=== PATIENT | male | born 1945 | race Caucasian/White ===

== ENCOUNTER 2017-06-19 04:24 | Emergency (ER) | payer MEDICARE, OTHER ==
[2017-06-19 05:06] LABS: Appearance,Urine Clear (Clear); Bilirubin,Urine Negative (Negative); Blood,Urine Negative (Negative); Color,Urine Light Yellow; Glucose,Urine (UA) Negative (Negative); Ketones,Urine Negative (Negative); Leukocyte Esterase,Urine Negative (Negative); Nitrite,Urine Negative (Negative); PH, Urine 6.5 (5.0-8.0); Protein,Urine Negative (Negative); Specific Gravity,Urine 1.008 (1.001-1.035); Urobilinogen,Urine <2.0 mg/dL (<2.0)
--- NOTE | 2017-06-19 05:26 | ED ---
Male Urogenital HPI - General Chief complaint: Urogenital Stated complaint: Male Time Seen by Provider: 06/19/17 04:43 Source: patient Mode of arrival: ambulatory Limitations: no limitations - History of Present Illness Initial comments: 72 years old male presents with urinary retention like symptoms he said he had a hard time voiding for the last 2 days he denies any history of prostate cancer or bladder tumor he said he has just a benign prostate hypertrophy complains about some mom frequency unable to void no fever no chills no nausea no vomiting no flank pain review of system is otherwise unremarkable - Related Data Allergies Allergy/AdvReac Type Severity Reaction Status Date / Time No Known Allergies Allergy Verified 06/19/17 04:31 Review of Systems ROS Statement: Those systems with pertinent positive or pertinent negative responses have been documented in the HPI. ROS Other: All systems not noted in ROS Statement are negative. Past Medical History Past Medical History: Diabetes Mellitus, Hypertension History of Any Multi-Drug Resistant Organisms: None Reported Past Surgical History: Back Surgery, Joint Replacement, Orthopedic Surgery, Tonsillectomy Additional Past Surgical History / Comment(s): sinus surgery 11/18/2014, Past Psychological History: No Psychological Hx Reported Smoking Status: Former smoker Past Alcohol Use History: None Reported Past Drug Use History: None Reported General Exam - General Exam Comments Initial Comments: General: The patient is awake and alert, in no distress, and does not appear acutely ill. Skin: Skin is warm and dry and no rashes or lesions are noted. Eye: Pupils are equal, round and reactive to light, extra-ocular movements are intact; there is normal conjunctiva bilaterally. Ears, nose, mouth and throat: There are moist mucous membranes and no oral lesions. Neck: The neck is supple, there is no tenderness or JVD. Cardiovascular: There is a regular rate and rhythm. No murmur, rub or gallop is appreciated. Respiratory: To auscultation bilateral, no wheezing no rhonchi no distress respiratory howell noticed Gastrointestinal: Soft, non-distended, non-tender abdomen without masses or organomegaly noted. There is no rebound or guarding present. Bowel sounds are unremarkable. Back: There is no tenderness to palpation in the midline. There is no obvious deformity. Musculoskeletal: Normal ROM, no tenderness, There is no pedal edema. There is no calf tenderness or swelling. No cords were appreciated. Neurological: CN II-XII intact, Cranial nerves III through XII are intact. There are no obvious motor or sensory deficits. Coordination appears grossly intact. Speech is normal. Psychiatric: Cooperative, appropriate mood & affect, normal judgment. Limitations: no limitations Course Vital Signs 06/19/17 04:26 Temperature 97.9 F Pulse Rate 84 Respiratory 20 Rate Blood Pressure 189/99 O2 Sat by Pulse 98 Oximetry Urinalysis was done it was unremarkable, bladder scan was done it started about 600 mL of urine Rivera was inserted, 400+ cc came out patient is inclined to keep the Rivera catheter he has his urologist at [facility] and he wants to follow up with him or provide him with a leg bag and he be discharged to see his family doctor and his urologist Medical Decision Making - Lab Data Lab Results 06/19/17 Range/Units 04:58 Urine Color Light Yellow Urine Appearance Clear (Clear) Urine pH 6.5 (5.0-8.0) Ur Specific [place] 1.008 (1.001-1.035) Urine Protein Negative (Negative) Urine Glucose (UA) Negative (Negative) Urine Ketones Negative (Negative) Urine Blood Negative (Negative) Urine Nitrite Negative (Negative) Urine Bilirubin Negative (Negative) Urine Urobilinogen <2.0 (<2.0) mg/dL Ur Leukocyte Esterase Negative (Negative) Disposition Clinical Impression: Urinary retention Disposition: HOME SELF-CARE Condition: Good Instructions: Urinary Retention in Men (ED) Is patient prescribed a controlled substance at d/c from ED?: No If prescribed controlled substance>3 days was MAPS reviewed?: No When asked, does pt state using other controlled substances?: No Referrals: Hansel Pickens MD [Primary Care Provider] - 1-2 days
[2017-06-19 05:33] VITALS: BP 176/96; PULSE 66; RESP 18; TEMP 97
[2017-06-19] MEDS ORDERED: LIDOCAINE URO-JET JELLY 2% 5 ML KIT URETHRAL ONE (05:38)
== END 2017-06-19 06:03 | disposition home or self-care (01) ==
LOC: EC 04:24
DX: R33.9 Retention of urine, unspecified (principal); N40.0 Benign prostatic hyperplasia without lower urinary tract symptoms; Z87.891 Personal history of nicotine dependence; Z98.890 Other specified postprocedural states
CPT/HCPCS: 51702; 81003; 99284